=== PATIENT | female | born 1995 | race Caucasian/White ===

== ENCOUNTER 2022-06-03 14:47 | Emergency (ER) | payer SELFPAY ==
[2022-06-03] MEDS ORDERED: Ketorolac Tromethamine 30 MG/ML VIAL ONE (15:43)
== END 2022-06-03 16:24 | disposition home or self-care (01) ==
LOC: ERS 14:47
DX: S93.401A Sprain of unspecified ligament of right ankle, initial encounter (principal); J45.909 Unspecified asthma, uncomplicated; X50.1XXA Overexertion from prolonged static or awkward postures, initial encounter
CPT/HCPCS: 96372; J1885

== ENCOUNTER 2022-06-20 19:36 | Emergency (ER) | payer SELFPAY | END 2022-06-20 21:47 | disposition left against medical advice (07) | LOC: ERS 19:36 | DX: Z53.21 Procedure and treatment not carried out due to patient leaving prior to being seen by health care provider (principal) ==

== ENCOUNTER 2022-06-21 19:51 | Emergency (ER) | payer SELFPAY ==
[2022-06-21] MEDS ORDERED: Ketorolac Tromethamine 30 MG/ML VIAL ONE (21:06)
== END 2022-06-21 21:47 | disposition home or self-care (01) ==
LOC: ERS 19:51
DX: R22.43 Localized swelling, mass and lump, lower limb, bilateral (principal)
CPT/HCPCS: 96372; 99283; J1885